=== PATIENT | male | born 1960 | race Two or more races ===

== ENCOUNTER 2019-03-25 08:28 | Emergency (ER) | payer BC ==
[~2019-03-25] VITALS: Ht 175.3 cm; Wt 90.9 kg
--- NOTE | 2019-03-25 08:46 | NUR ---
PT C/O LEFT SIDE FLANK PAIN WRAP AROUND TO FRONT ABDOMEN. STARTED AT 0630 THIS MORNING. PT ALSO CAME FROM WITH C/O BRADYCARDIA. FIRST TIME PT HAS HEARD HE HAS LOW HEART RATE. PT STATES "IT FEELS LIKE I HAVE TO PEE, BUT I DON'T." PT RESTING ON GURNEY. BEDSIDE. PT PLACED ON CONT PULSE OX,NIBP,.
--- NOTE | 2019-03-25 08:55 | NUR ---
PIV ESTABLISHED. PT TOLERATED WITH NO COMPLICATIONS. BLOOD OBTAINED. PT AMBULATORY WITH STEADY GAIT TO BATHROOM
[2019-03-25] MEDS ORDERED: ONDANSETRON 2MG/ML, 2ML ONE (08:58)
[2019-03-25] MEDS ORDERED: MORPHINE SULFATE 4 MG/ML, 1ML ONE ×2 (08:58→10:12)
[2019-03-25] MEDS: MORPHINE SULFATE 4 MG/ML, 1ML IVPush PRN ×2 (09:00→10:14)
[2019-03-25] MEDS ORDERED: ONDANSETRON 2MG/ML, 2ML IVPush ONE (09:00)
[2019-03-25] MEDS ORDERED: SODIUM CHLORIDE FLUSH 10ML SYR IVF ONE (09:00)
[2019-03-25 09:08] LABS: BASOPHILS # (AUTO) 0.05 x10^3/uL (0-0.1); BASOPHILS % (AUTO) 1 % (0-1); EOSINOPHILS # (AUTO) 0.03 x10^3/uL (0-0.4); EOSINOPHILS % (AUTO) 0 % (1-7); LYMPHOCYTES # (AUTO) 2.42 x10^3/uL (1-3.4); LYMPHOCYTES % (AUTO) 25 % (22-44); MD NO; MEAN CORPUSCULAR HEMOGLOBIN 32.7 pg (27.5-34.5); MEAN CORPUSCULAR HGB CONC 33.5 g/dL (33.2-36.2); MEAN CORPUSCULAR VOLUME 97.6 fL (81-97); MEAN PLATELET VOLUME 8.3 fL (7.4-10.4); MONOCYTES # (AUTO) 0.65 x10^3/uL (0.2-0.8); MONOCYTES % (AUTO) 7 % (2-9); NEUTROPHILS # (AUTO) 6.62 x10^3/uL (1.8-6.8); NEUTROPHILS % (AUTO) 68 % (42-75); PLATELET COUNT 186 x10^3/uL (130-400)
[2019-03-25 09:16] LABS: ALANINE AMINOTRANSFERASE 91 U/L (12-78); ALBUMIN 4.2 g/dL (3.4-5.0); ANION GAP 6 mmol/L (5-15); CALCIUM 9.6 mg/dL (8.5-10.1); CHLORIDE 109 mmol/L (98-107); CREATININE 1.54 mg/dL (0.7-1.3)
[2019-03-25 09:19] LABS: ALKALINE PHOSPHATASE 92 U/L (45-117); BILIRUBIN,TOTAL 1.1 mg/dL (0.2-1.0); TOTAL PROTEIN 8.1 g/dL (6.4-8.2)
[2019-03-25 09:25] LABS: MICROSCOPIC AUTO
[2019-03-25 09:27] LABS: CULTURE INDICATED? YES
--- NOTE | 2019-03-25 09:38 | NUR ---
pt back from imaging.
[2019-03-25] MEDS ORDERED: KETOROLAC 30 MG/1 ML IVPush ONE (10:00)
[2019-03-25] MEDS ORDERED: KETOROLAC 30 MG/1 ML ONE (10:12)
[2019-03-25 10:14] VITALS: BP 157/72
--- NOTE | 2019-03-25 10:44 | NUR ---
Patient/Caregiver given discharge instructions and they have confirmed that they understand the instructions. Patient ambulatory with steady gait. PIV D/C WITH TIP INTACT. PRESSURE DRESSING APPLIED.
== END 2019-03-25 10:46 | disposition home or self-care (01) ==
LOC: ED 09:22
DX: N20.1 Calculus of ureter (principal); R00.1 Bradycardia, unspecified; R10.30 Lower abdominal pain, unspecified
CPT/HCPCS: 36415; 74176; 80053; 81001; 85025; 87086; 93005; 96374; 96375; 96376; 99284; J1885; J2270; J2405

== ENCOUNTER → 2019-07-21 | Outpatient (CLI) | payer BC | END | disposition home or self-care (01) | LOC: RAD 14:31 | PROVIDERS: ATTEND Family Medicine | DX: N20.0 Calculus of kidney (principal); N23 Unspecified renal colic | CPT/HCPCS: 74176 ==